=== PATIENT | female | born 1945 | race Caucasian/White ===

== ENCOUNTER → 2024-06-18 | Outpatient (CLI) | payer MEDICARE, SELFPAY ==
--- NOTE | 2024-06-18 12:05 | CT_ITS ---
STUDY: CT RIGHT UPPER EXTREMITY / HUMERUS REASON FOR EXAM: Female, 78 years old. OTH DISP FX OF LOWER END OF R HUMERUS INIT FOR CLOS FX RADIATION DOSAGE (If Supplied By Facility): CTDIvol = ( 27.68 ) mGy, DLP = ( 776.57 ) mGycm TECHNIQUE: High resolution transaxial imaging was performed without the administration of intravenous contrast material. Individualized dose optimization techniques were used for this CT. COMPARISON: None. FINDINGS: Normal subcutis adipose space. There is no demonstrated solid, cystic, or lipomatous mass within the subcutaneous adipose space. There is soft tissue swelling and edema of the triceps musculature. There is joint effusion at the elbow. Normal visualized neurovascular bundles. There is recent Y shaped intercondylar fracture with supracondylar comminution of the distal humerus . There is displacement of fragments of up to 1.[address]/Extremity Upper without Contra IMPRESSION: Distal humerus fracture. Electronically Signed: Santos Carpio MD at 13:52 EST ,
== END | disposition home or self-care (01) ==
PROVIDERS: PCP Family Medicine; Visit Provider Physician Assistant Surgical
DX: S42.491A Other displaced fracture of lower end of right humerus, initial encounter for closed fracture (principal)
CPT/HCPCS: 73200

== ENCOUNTER 2024-06-30 11:42 | Emergency (ER) | payer MEDICARE, SELFPAY ==
[2024-06-30 11:43] VITALS: BP 120/102; PULSE 104; RESP 20; TEMP 36.1; O2SAT 99
[2024-06-30 11:47] VITALS: BMI 31.5
--- NOTE | 2024-06-30 12:13 | RAD_ITS ---
EXAM: XR PELVIS, 1 OR 2 VIEWS CLINICAL INDICATION: pain, remote fall TECHNIQUE: Frontal view of the pelvis. COMPARISON: No relevant prior studies available. FINDINGS: BONES/JOINTS: Unremarkable. No displaced fracture. No destructive or sclerotic lesions. Note that overlapping bowel shadows may however obscure fine detail. Sacroiliac joints are unremarkable. No widening of the pubic symphysis. The articular structures are unremarkable. SOFT TISSUES: Unremarkable. No soft tissue swelling or gas. RAD/Pelvis 1 or 2 Views IMPRESSION: No acute fracture or dislocation of the pelvis Electronically Signed: Karan Hannon MD at 12:58 EST ,
--- NOTE | 2024-06-30 12:14 | RAD_ITS ---
EXAM: XR LUMBOSACRAL SPINE, 2 OR 3 VIEWS CLINICAL INDICATION: right buttocks pain, recent fall TECHNIQUE: Frontal and lateral views of the lumbar spine and sacrum. COMPARISON: No relevant prior studies available. FINDINGS: VERTEBRAE: Unremarkable. Preserved vertebral body height. No fracture. No spondylolisthesis. Preservation of the normal lumbar lordosis. No significant facet arthropathy. DISC SPACES: No acute findings. Disc spaces are maintained. VASCULATURE: Calcified plaques along the abdominal aorta. GASTROINTESTINAL TRACT: Unremarkable as visualized. Included bowel gas pattern is non-obstructive. RAD/Lumbar Spine 2 or 3 Views IMPRESSION: No acute fracture or traumatic subluxation of the lumbar spine including the sacrum. Electronically Signed: Karan Hannon MD at 13:02 EST ,
[2024-06-30] MEDS: morphine 10 MG/ML Syringe 6 MG IM (12:17)
--- NOTE | 2024-06-30 12:28 | ED.VIS.BACK ---
HPI History of Present Illness Chief Complaint: Back Informant: patient Narrative Narrative: Patient is a 78-year-old female with history of recent mechanical fall on June 16 with subsequent right elbow fracture. She underwent surgical repair with Dr. Garret Bell at [facility]. She states they placed and 3 plates and 16 screws in her elbow. She denies initially any other injuries associated with her fall. She notes in the past 2 to 3 days however she has been having worsening pain in her lower back/right buttocks area. She states that sharp and stabbing. It sometimes radiates slightly down her leg. She denies any new injuries. Notes pain is worse when she stands up straight or sits. Denies any bowel or bladder incontinence. Denies any swelling of her legs. Is not sure if she has had imaging of her back or pelvis/hips since her injury. Denies any rash or skin changes. Notes that she is having extremely hard time using the toilet but is because of the position of sitting on the toilet. I have denies any bowel or bladder incontinence this week. Does report that immediately postoperative she did have some urinary incontinence but her states that was from the medication she received. Patient is not on any blood thinners. Notes the swelling is slowly going down in her right arm and she has not in a cast/sling. Patient has been taking 2 ibuprofen and 2 Tylenol every 8 hours per instructions of her orthopedist. States she is about out of her prescription pain medication from her surgery. No other complaints or concerns reported at this time. PFSH PFSH Allergy/AdvReac Type Severity Reaction Status Date / Time No Known Allergies Allergy Verified 06/30/24 11:43 Social History Smoking Status: Unknown if ever smoked ROS ROS ED Constitutional Constitutional ED: Denies chills or fever(s) Cardiovascular Cardiovascular: Denies chest pain Respiratory/Chest Respiratory/Chest: Denies dyspnea Gastrointestinal Gastrointestinal: Denies abdominal pain, diarrhea, nausea or vomiting Musculoskeletal Musculoskeletal: Reports back pain and other Details: Recent right elbow fracture with surgical repair, acute right buttocks pain Integumentary Denies Abrasions or rash Neurologic Neurologic: Denies paresthesias or weakness Hematologic/Lymphatic Hematologic/Lymphatic: Denies easy bleeding or easy bruising EXAM Physical Exam Const Vital Signs: 06/30/24 11:43 Temperature 97 F L Temperature Source Temporal Pulse Rate 104 H Respiratory Rate 20 H Blood Pressure 120/102 H Blood Pressure Mean 108 Pulse Ox 99 Oxygen Delivery Method Room Air Positive well nourished and well developed General Appearance ED: well developed HEENT Reports moist mucous membranes Neck supple Resp normal respiratory effort and clear to auscultation bilaterally Cardio regular rate and regular rhythm Cardio Narrative: 2+ radial and DP pulses GI normal to inspection, nondistended, normoactive bowel sounds, soft to palpation and non-tender Back/Spine normal to inspection and no thoracic nor lumbar tenderness Back/Spine Narrative: Very mild tenderness palpation of the right paraspinal region of the sacrum. Tenderness palpation over the right buttocks to the area of the piriformis. Thoracic Spine / Upper Back: Negative for paraspinal muscle tenderness Lumbar Spine / Lower Back: straight leg raise negative bilaterally Extremity Extremity Narrative: Right upper extremity is in splint from recent surgery. Normal movement of her fingers. No deformity of the lower extremities. Pelvis is stable. No pain with range of motion of the hips bilaterally. No pedal edema appreciated. Neuro oriented x3 and no sensory deficits noted Sensorium / Orientation: alert Motor Exam: strength 5/5 throughout Psych mental status grossly normal Skin no rashes or lesions noted MDM MDM MDM Narrative Medical decision making narrative: Patient is a 78-year-old female presenting with 2 to 3 days of worsening right lower back/buttocks pain. Patient had fall 2 weeks ago and sustained a significant right upper extremity fracture requiring surgery. She is concerned that she might have secondary traumatic injury. Given the new pain (over the last 2 to 3 days and not present before) with no new trauma lower suspicion for an occult fracture will obtain a pelvic x-ray as well as a lumbar x-ray. She does not have any pain with palpation or range of motion of the hip so I do not think this is occult hip/femur fracture. She has negative straight leg test bilaterally. She is not any red flag symptoms for cauda equina syndrome. Patient given dose of IM morphine. X-ray of the lumbar spine and pelvis reviewed by myself as well as urology not show any acute fracture or other traumatic process. Patient will be discharged home with instructions to continue taking Tylenol and ibuprofen and to take her oxycodone as needed for breakthrough pain. She is offered refill but she states she has enough at home. Is encouraged to follow-up with her primary care doctor as well as orthopedist. Counseled this is probably more similar to sciatica. We did discuss steroids but given that she just had surgery on her elbow I would like to hold off as to not limit wound healing. Patient is agreeable with this. Given return precautions. Discharged home in stable condition. Radiography Diagnostic Testing: Clinical Impression(s) from Imaging Studies Pelvis X-Ray 06/30/24 12:13 IMPRESSION: No acute fracture or dislocation of the pelvis Electronically Signed: Karan Hannon MD at 12:58 EST , Lumbar Spine X-Ray 06/30/24 12:14 IMPRESSION: No acute fracture or traumatic subluxation of the lumbar spine including the sacrum. Electronically Signed: Karan Hannon MD at 13:02 EST , Discharge Plan Triage Chief Complaint: Back ED Provider: Bonnie Mendoza Dx/Rx/DC Orders Clinical Impression: Acute right-sided low back pain, Pain in right buttock, Radicular pain of lumbosacral region Instructions: ED Back Pain (Acute or Chronic) Primary Care Provider: Lore Valles Referrals: Lore Valles, [Primary Care Provider] - Activity Restrictions/Additional Instructions: Continue to take ibuprofen and Tylenol at home. Take your prescribed pain medicine as well as needed for breakthrough pain. Apply heat to the area and try to keep moving around (walking and doing gentle stretching). There is no broken bone noted on your x-rays today of your pelvis or lumbar spine. I suspect you have a nerve that is irritated in your low back/buttocks region that is causing your pain. Please follow-up with your primary care doctor or orthopedics if does not improve over the next few days. Print Language: Upper Sorbian Disposition Disposition: Home, Self Care Discharge Date/Time: 06/30/24 13:40
== END 2024-06-30 13:40 | disposition home or self-care (01) ==
LOC: ED 12:12
PROVIDERS: Emergency Provider Emergency Medicine; PCP Family Medicine; Visit Provider Emergency Medicine
DX: M54.17 Radiculopathy, lumbosacral region (principal)
CPT/HCPCS: 72100; 72170; 96372; 99282

== ENCOUNTER 2024-07-09 14:12 | Inpatient (IN) | payer MEDICARE, SELFPAY ==
[2024-07-09 14:47] VITALS: BP 132/82; PULSE 94; RESP 16; TEMP 36.3; O2SAT 96
[2024-07-09 14:51] VITALS: BMI 28.9
--- NOTE | 2024-07-09 15:08 | PCM.HP.STD ---
HPI - General General Date of Admission: 07/09/24 Date of Service: 07/09/24 Chief Complaint: Here for rehabilitation. HPI Narrative SHANKAR CARPIO, is a 78 Female with history of HTN, Hyperlipidemia, Vitamin D deficiency, recent right intra-articular distal humerus fracture s/p ORIF 06/23/2024; discharge home on 06/24/2024. Presented 07/02/2024 with right lower gluteal pain radiating to upper leg that started about 6-7 days prior. Denied weakness, numbness, tingling, but stated she was having difficulty ambulating due to the pain and inability to use walker due to recent fracture. She was admitted for further workup and evaluation, as well as therapy evaluations. During admission, orthopedic surgery was consulted. Patient had x-ray of right hip orderd to rule out fracture and was unremarkable. Subsequently had a CT pelvis and CT of her lower back which showed nondisplaced fractures of the bilateral sacral ala through zone 1. There are also minimally displaced fractures of the bilateral transverse processes of L5. There are no apparent injuries to the anterior portion of the pelvic ring. No intervention required per orthopedic surgery and okay to bear weight as tolerated. She was initially treated with ibuprofen, gabapentin, Medrol Dosepak for concern of sacroiliitis. Ibuprofen had to be discontinued as she developed LIZBET. Steroids were tapered off because of fractures as above and patient started on oxycodone with improvement in pain. Also given Lidocaine patch at area of pain. 07/09/2024 Admit to TCU with debility, here for rehabilitation, strengthening, prior to discharge home with significant other. FOR[facility]LY [facility], [facility] Medical History (Updated 07/09/24 @ 15:[address] Reynaldo Gallagher MD) Closed fracture of right distal humerus Vitamin D deficiency Hyperlipidemia, unspecified Essential (primary) hypertension Hypokalemia Acute kidney injury Closed L5 vertebral fracture Bilateral sacral insufficiency fracture Debility Home Medications ?Medication ?Instructions ?Recorded ?Last Taken ?Type acetaminophen 500 mg capsule 1,000 mg PO Q8H PRN PRN pain 07/09/24 Unknown History [id number] 333 mg-133 1 tab PO DAILY supplement 07/09/24 Unknown History mg-5 mg tablet cholecalciferol (vitamin D3) 25 1,000 unit PO DAILY supplement 07/09/24 Unknown History mcg (1,000 unit) capsule cyclobenzaprine 5 mg tablet 5 mg PO TID PRN muscle spasm 07/09/24 Unknown History gabapentin 300 mg capsule 300 mg PO TID nerve pain 07/09/24 Unknown History hydrochlorothiazide 12.5 mg capsule 12.5 mg PO DAILY BP 07/09/24 Unknown History lidocaine 4 % topical patch 1 patch topical DAILY pain 07/09/24 Unknown History (Aspercreme (lidocaine)) oxycodone 5 mg capsule 5 mg PO Q4H PRN pain (scale score 07/09/24 Unknown History 7-10) polyethylene glycol 3350 17 17 g PO DAILY bowels 07/09/24 Unknown History gram/dose oral powder (Miralax) rosuvastatin 10 mg tablet 10 mg PO QHS cholesterol 07/09/24 Unknown History sennosides 8.6 mg-docusate sodium 2 tab-cap PO DAILY PRN constipation 07/09/24 Unknown History 50 mg tablet (Senna with Docusate Sodium) Allergy/AdvReac Type Severity Reaction Status Date / Time No Known Allergies Allergy Verified 06/30/24 11:43 Surgical History (Updated 07/09/24 @ 15:[address] Reynaldo Gallagher MD) History of open reduction and internal fixation (ORIF) procedure Social History (Updated 07/09/24 @ 15:[address] Reynaldo Gallagher MD) household members: significant other Smoking Status: Never smoker alcohol intake: never substance use type: does not use ROS Constitutional Constitutional: Reports weakness; Denies chills, fever(s) or weight gain ENT HEENT: Denies headache(s), nasal congestion or nasal discharge Cardiovascular Cardiovascular: Denies chest pain or palpitations Respiratory/Chest Respiratory/Chest: Denies cough, excessive phlegm production or shortness of breath with exertion Gastrointestinal Gastrointestinal: Denies abdominal pain, nausea or vomiting Genitourinary Genitourinary: Denies dysuria Musculoskeletal Musculoskeletal: Denies joint pain or joint swelling Integumentary Integumentary: Denies rash or wounds Neurologic Neurologic: Denies focal weakness, numbness or tingling Psychiatric Psychiatric: Denies anxiety, auditory hallucinations, depression, homicidal ideation or suicidal ideation Vital Signs Vital Signs Vital Signs: 07/09/24 14:47 Temperature 97.3 F L Temperature Source Temporal Pulse Rate 94 Respiratory Rate 16 Blood Pressure 132/82 H Blood Pressure Mean 98 Blood Pressure Source Monitor Blood Pressure Position Semi-Fowlers Blood Pressure Location Left Arm Pulse Ox 96 Oxygen Delivery Method Room Air Weight Weight: 71.758 kg Body Mass Index (BMI) 28.9 Physical Exam Const alert General Appearance: cooperative HEENT normocephalic Eyes PERRL and EOMs intact bilaterally Neck supple, no JVD and no carotid bruits Resp normal respiratory effort, normal air movement and clear to auscultation bilaterally Cardio regular rate and regular rhythm GI normal to inspection, nondistended, normoactive bowel sounds, non-tender and non-distended Extremity normal capillary refill General Extremity: Negative for edema Skin no rashes or lesions noted General Skin Exam: no breakdown Psych affect normal Appearance: appropriate Assessment & Plan Assessment/Plan (1) Closed fracture of right distal humerus: (2) Vitamin D deficiency: (3) Hyperlipidemia, unspecified: (4) Essential (primary) hypertension: (5) Hypokalemia: (6) Acute kidney injury: (7) Closed L5 vertebral fracture: (8) Bilateral sacral insufficiency fracture: (9) Debility: PLAN: Plan 78 year old female with below past medical history hospitalized for bilateral sacral insufficiency fracture, l5 transverse process fracture, complicated by acute kidney injury, hypokalemia, admitted to TCU with debility, here for rehabilitation, strengthening, prior to discharge home with significant other. Debility - PT/OT. Pain - Tylenol 1000mg q8, Tramadol 50mg q6 prn pain (1-5), Oxycodone 5mg q4 prn pain (6-10), Lidoderm 1 patch td daily. Bowel - senna/colace 2 tablets bid, Magnesium citrate 300mL po daily prn. Adult immunization - Administer pneumonia vaccine, covid vaccine, flu vaccine as appropriate. DVT prophylaxis - Lovenox 40mg sc daily. Hyperlipidemia - Atorvastatin 20mg qhs. Vitamin D deficiency - D3 25mcg daily. Muscle spasm - Flexeril 5mg po tid prn. Neuropathic pain - Gabapentin 300mg tid. Hypertension - HCTZ 12.5mg daily.
[2024-07-09 15:50] VITALS: RESP 16
[2024-07-09] MEDS: oxyCODONE 5 MG Tablet PO ×2 (17:09→21:09)
[2024-07-09] MEDS: Senna/Docusate Sodium 1 Tablet 2 TABLET PO (21:02)
[2024-07-09] MEDS: Gabapentin 300 MG Capsule PO (21:02)
[2024-07-09] MEDS: Acetaminophen 500 MG Tablet 1000 MG PO (21:02)
[2024-07-09] MEDS: Atorvastatin Calcium 20 MG Tablet PO (21:03)
[2024-07-10] MEDS: cycloBENZAPRine HCl 5 MG TABLET PO (00:37)
[2024-07-10] MEDS: traMADol 50 MG Tablet PO ×4 (00:37→22:44)
[2024-07-10] MEDS: Gabapentin 300 MG Capsule PO ×3 (05:32→22:44)
[2024-07-10] MEDS: oxyCODONE 5 MG Tablet PO ×2 (05:32→18:14)
[2024-07-10] MEDS: Acetaminophen 500 MG Tablet 1000 MG PO ×3 (05:32→22:45)
[2024-07-10 07:58] LABS: Absolute Lymphocyte Count 2.99 X10^3/uL (0.83-4.51); Absolute Neutrophil Count 5.3 X10^3/uL (2.0-7.7); Basophil# 0.07 X10^3/uL; Basophil% 0.7 % (0-1); Eosinophil# 0.36 X10^3/uL; Eosinophils% 3.8 % (0-5); Hematocrit 40.5 % (37-47); Lymphocyte # 2.99 X10^3/ul (0.83-4.51); Lymphocyte % 31.5 % (19-41); Mean Corp Hgb Conc 32.1 g/dL (32-36); Mean Corpuscular Volume 99.8 fL (81-99); Mean Platelet Vol. 9.1 fl (6.2-12.0); Monocyte# 0.74 X10^3/uL; Monocyte% 7.8 % (0-10); NRBC Flagged by Analyzer 0 % (0-5); Neutrophil # 5.29 X10^3/uL (2.7-7.7); Neutrophil % 55.9 % (47-70); Platelet Count 501 K/mm3 (150-450); RBC Distribution Width CV 14.7 % (11.6-14.6); RBC Distribution Width SD 54.1 fl (35.1-43.9); Red Blood Count 4.06 M/mm3 (4.2-5.4); White Blood Count 9.5 K/mm3 (4.4-11.0)
[2024-07-10 08:20] LABS: Anion Gap 5 (5-15); BUN 20 mg/dL (7-18); BUN/Creat Ratio 23.3 RATIO (10-20); Calcium,Total 9.1 mg/dL (8.5-10.1); Chloride 100 mmol/L (98-107); Creatinine, Serum 0.86 mg/dL (0.55-1.02); EST Glomerular Filtration Rate 68 mL/min (>60); Est Glom Filt Rate - Afr Amer 82 mL/min (>60); Estimated Creatinine Clearance 50.01 ml/min; Glucose 115 mg/dL (74-106); Potassium 3.5 mmol/L (3.5-5.1); Sodium Level 136 mmol/L (136-145)
[2024-07-10 08:57] VITALS: BP 133/79; PULSE 108; TEMP 36.3
[2024-07-10] MEDS: hydroCHLOROthiazide 12.5mg 12.5 MG PO (09:02)
[2024-07-10] MEDS: Cholecalciferol (VIT D3) 25 MCG TABLET (1,000 UNITS) PO (09:03)
[2024-07-10] MEDS: Senna/Docusate Sodium 1 Tablet 2 TABLET PO ×2 (09:03→22:46)
[2024-07-10] MEDS: Tuberculin,Purif.prot.deriv. 50 TU/ML Vial 0.1 ML ID (09:22)
[2024-07-10] MEDS: Enoxaparin 40 MG/0.4 ML Syringe SC (11:02)
--- NOTE | 2024-07-10 11:40 | PCM.PN.DRR ---
Documented by User: Melissa Garcia 07/10/24 11:57 TCU RX Drug Regimen Review Subjective/Objective Subjective/Objective Subjective: TCU Admission. 78 YOF presented to outside ER with pain. Hospitalized for bilateral sacral insufficiency fracture, l5 transverse process fracture, complicated by acute kidney injury, hypokalemia. Admitted to TCU with debility for strengthening and rehabilitation. Objective: Allergies No Known Allergies Allergy (Verified 06/30/24 11:43) Current Medications Generic Name Dose Route Start Last Admin Trade Name Freq PRN Reason Stop Dose Admin Acetaminophen 1,000 mg 07/09/24 22:00 07/10/24 05:32 Acetaminophen 500 Mg Tablet PO 1,000 mg Q8 ALBERT Administration Atorvastatin Calcium 20 mg 07/09/24 22:00 07/09/24 21:03 Atorvastatin Calcium 20 Mg Tablet PO 20 mg QHS ALBERT Administration Cholecalciferol 25 mcg 07/10/24 10:00 07/10/24 09:03 Cholecalciferol (Vit D3) 25 Mcg Tablet (1,000 Units) PO 25 mcg DAILY ALBERT Administration Cyclobenzaprine HCl 5 mg 07/09/24 14:30 07/10/24 00:37 Cyclobenzaprine Hcl 5 Mg Tablet PO 5 mg TID PRN Administration muscle spasm Enoxaparin Sodium 40 mg 07/10/24 10:00 07/10/24 11:02 Enoxaparin 40 Mg/0.4 Ml Syringe SC 40 mg DAILY@0600 ALBERT Administration Gabapentin 300 mg 07/09/24 22:00 07/10/24 05:32 Gabapentin 300 Mg Capsule PO 300 mg TID ALBERT Administration Hydrochlorothiazide 12.5 mg 07/10/24 10:00 07/10/24 09:02 Hydrochlorothiazide 12.5mg PO 12.5 mg DAILY ALBERT Administration Protocol Lidocaine 1 patch 07/10/24 10:00 07/10/24 09:02 Lidocaine 5% Patch TOPICAL Not Given DAILY ALBERT Magnesium Citrate 300 ml 07/09/24 15:35 Magnesium Citrate 300 Ml PO DAILY PRN CONSTIPATION Oxycodone HCl 5 mg 07/09/24 15:35 07/10/24 05:32 Oxycodone 5 Mg Tablet PO 5 mg Q4H PRN Administration Pain Score 6-10 or Pre PT/OT Senna/Docusate Sodium 2 tablet 07/09/24 22:00 07/10/24 09:03 Senna/Docusate Sodium 1 Tablet PO 2 tablet BID ALBERT Administration Tramadol HCl 50 mg 07/09/24 15:35 07/10/24 09:22 Tramadol 50 Mg Tablet PO 50 mg Q6H PRN PRN Administration Pain Score 1-5 or Pre PT/OT Tuberculin PPD 0.1 ml 07/17/24 10:00 Tuberculin,Purif.Prot.Deriv. 50 Tu/Ml Vial ID 07/17/24 10:01 X1 ONE Problem List Closed fracture of right distal humerus (Acute) Vitamin D deficiency (Acute) Hyperlipidemia, unspecified (Acute) Essential (primary) hypertension (Acute) Hypokalemia (Acute) Acute kidney injury (Acute) Closed L5 vertebral fracture (Acute) Bilateral sacral insufficiency fracture (Acute) Debility (Acute) Vital Signs Temp Pulse Resp BP Pulse Ox O2 Del Method 97.4 F L 108 H 16 133/79 H 96 Room Air 07/10/24 08:57 07/10/24 08:57 07/09/24 15:50 07/10/24 08:57 07/09/24 14:47 07/10/24 08:57 Oxygen Delivery Method Room Air Weight: 71.758 kg Body Mass Index (BMI) 28.9 Sodium 136 mmol/L (136-145) 07/10/24 07:47 Potassium 3.5 mmol/L (3.5-5.1) 07/10/24 07:47 Chloride 100 mmol/L (98-107) 07/10/24 07:47 Carbon Dioxide 32.0 mmol/L (21.0-32.0) 07/10/24 07:47 Anion Gap 5 (5-15) 07/10/24 07:47 BUN 20 mg/dL (7-18) H 07/10/24 07:47 Creatinine 0.86 mg/dL (0.55-1.02) 07/10/24 07:47 Est GFR (MDRD) Af Amer 82 mL/min (>60) 07/10/24 07:47 Est GFR (MDRD) Non-Af 68 mL/min (>60) 07/10/24 07:47 BUN/Creatinine Ratio 23.3 RATIO (10-20) H 07/10/24 07:47 Glucose 115 mg/dL (74-106) H 07/10/24 07:47 Assessment/Plan: 1. Pain: acetaminophen 1000mg PO Q8, tramadol 50mg PO Q6H PRN pain 1-5 (2 doses, pain scores of 3-flank and 10-back/buttock), oxycodone 5mg PO Q4H PRN pain 6-10 (3 doses, pain scores 9-10 in back/buttock) and lidocaine 5% patch 1 patch topical daily. Please continue to monitor for increased pain, PRN usage, constipation, respiratory depression, renal function and falls (BEERs). 2. Bowel: senna/docusate 2T PO BID and magnesium citrate 300mL PO daily PRN constipation. No PRN doses given. Please continue to monitor for constipation and PRN usage. Last documented bowel movement was 07/09. 3. DVT prophylaxis: enoxaparin 40mg SC daily. Please continue to monitor for S/S of bleeding/DVT, hemoglobin (last 13g/dL), platelets (last 501,000) and renal function. 4. Muscle spasms: cyclobenzaprine 5mg PO TID PRN muscle spasms. Resident has had 1 dose so far. Please continue to monitor for S/S of muscle spasms, PRN usage, dementia/delirium (BEERs), sedation (BEERs) and anticholinergic side effects (BEERs). 5. Hypertension: hydrochlorothiazide 12.5mg PO daily. Please continue to monitor BP (last 133/79), potassium (last 3.5mmol/L), sodium (last 136mmol/L) and renal function. 6. Hyperlipidemia: atorvastatin 20mg PO QHS. Please consider ordering a lipid panel as there is no panel in the chart. Thanks. Please continue to monitor for muscle pain. 7. Vitamin D deficiency: cholecalciferol 25mcg PO daily. Please consider ordering a vitamin D level as there is no level in the chart. Thanks. Assessment/Plan for indications treated with psychotropic medications: 1. Neuropathic pain: gabapentin 300mg PO TID. GDR not appropriate as this medication is being used for neuropathic pain, however, please consider changing frequency to BID (based on BEERs recommendation for CrCl of 50 mL/min). Thanks. Please continue to monitor for falls/fractures (BEERs), renal function and confusion. Medical chart and medication regimen reviewed. The following medication irregularities or issues were identified: 1. Atorvastatin 20mg PO QHS. Please consider ordering a lipid panel as there is no panel in the chart. Thanks. 2. Gabapentin 300mg PO TID. GDR not appropriate as this medication is being used for neuropathic pain, however, please consider changing frequency to BID (based on BEERs recommendation for CrCl of 50 mL/min). Thanks. 3. Cholecalciferol 25mcg PO daily. Please consider ordering a vitamin D level as there is no level in the chart. Thanks. Date Date of Note: 07/10/24 Documented by User: Dr. Reynaldo Gallagher MD 07/11/24 09:03 TCU RX Drug Regimen Review Provider Comments Provider responsibility Provider Comments to Recommendations by Pharmacy Agree
[2024-07-10 15:00] VITALS: PULSE 101
[2024-07-10] MEDS: Atorvastatin Calcium 20 MG Tablet PO (22:45)
[2024-07-10] MEDS: Oseltamivir Phosphate 30 MG Capsule PO (22:46)
[2024-07-11] MEDS: oxyCODONE 5 MG Tablet PO ×3 (00:29→18:15)
[2024-07-11] MEDS: cycloBENZAPRine HCl 5 MG TABLET PO ×2 (00:29→21:10)
[2024-07-11] MEDS: Gabapentin 300 MG Capsule PO ×2 (06:04→18:14)
[2024-07-11] MEDS: Enoxaparin 40 MG/0.4 ML Syringe SC (06:04)
[2024-07-11] MEDS: Acetaminophen 500 MG Tablet 1000 MG PO ×3 (06:04→21:09)
[2024-07-11] MEDS: traMADol 50 MG Tablet PO ×3 (06:04→21:08)
[2024-07-11 08:05] VITALS: BP 129/74; PULSE 93; RESP 17; TEMP 36.1; O2SAT 92
[2024-07-11] MEDS: hydroCHLOROthiazide 12.5mg 12.5 MG PO (08:10)
[2024-07-11] MEDS: Cholecalciferol (VIT D3) 25 MCG TABLET (1,000 UNITS) PO (08:11)
[2024-07-11] MEDS: Senna/Docusate Sodium 1 Tablet 2 TABLET PO ×2 (08:11→21:10)
[2024-07-11] MEDS: Oseltamivir Phosphate 30 MG Capsule PO (21:10)
[2024-07-11] MEDS: Atorvastatin Calcium 20 MG Tablet PO (21:11)
[2024-07-11 22:46] VITALS: PULSE 100; RESP 16; O2SAT 95
[2024-07-12] MEDS: oxyCODONE 5 MG Tablet PO ×2 (00:07→09:09)
[2024-07-12] MEDS: Enoxaparin 40 MG/0.4 ML Syringe SC (05:47)
[2024-07-12] MEDS: Acetaminophen 500 MG Tablet 1000 MG PO ×3 (05:47→20:50)
[2024-07-12] MEDS: cycloBENZAPRine HCl 5 MG TABLET PO ×2 (05:47→20:51)
[2024-07-12] MEDS: traMADol 50 MG Tablet PO ×3 (05:48→23:00)
[2024-07-12 05:54] VITALS: RESP 16
[2024-07-12 06:38] LABS: Cholesterol 125 mg/dL (200); High Density Lipoprotein 38 mg/dL; Triglycerides 118 mg/dL; Very Low Density Lipoprotein 24 mg/dL (5-40)
[2024-07-12 08:15] LABS: Vitamin D,25 Hydroxy 81.9 ng/mL
[2024-07-12 09:06] VITALS: BP 137/75; PULSE 102; TEMP 36.6; O2SAT 96
[2024-07-12] MEDS: hydroCHLOROthiazide 12.5mg 12.5 MG PO (09:09)
[2024-07-12] MEDS: Gabapentin 300 MG Capsule PO ×2 (09:09→16:54)
[2024-07-12] MEDS: Cholecalciferol (VIT D3) 25 MCG TABLET (1,000 UNITS) PO (09:10)
[2024-07-12] MEDS: Senna/Docusate Sodium 1 Tablet 2 TABLET PO ×2 (09:10→20:49)
[2024-07-12] MEDS: Lidocaine 5% Patch 1 PATCH TOPICAL (09:10)
--- NOTE | 2024-07-12 12:35 | NURSING ---
Shipping Weigher Note; Activity Asset: Gerard Sánchez is independent in her choice of daily activities. She prefers to do independent activities in her room such as reading, smartphone, visits with other, and welcomes visits w/the therapy dog. She has a significant other that will visit and bring her things. Staff will remind her of weekly activities and respect her right to say no.
--- NOTE | 2024-07-12 15:05 | CASEMGMT ---
Social Work SW met with patient to complete initial assessment. Introduced self and role. Verified/updated contacts. Pt patient confirmed code status as full code. Pt states she has a living will, but no HCPOA. SW educated to the importance and benefit of a HCPOA and pt agreed to complete one. SW to complete prior to DC as time allows. Pt would like to name brother as HCPOA. SW educated to [facility] insurance, updating every 7 days, and insurance will issue a 3-day notice for DC. Pt is anxious to DC home, but is agreeable to remain until POC meeting 07/14 to get IDTs recommendations. SW to assist with DC planning. Pricsilla Yoder PROMOTIONS DIRECTOR REMELT WORKER
--- NOTE | 2024-07-12 15:44 | NURSING ---
Called and spoke with Aleyda at Dr. Garret Bell's office. Verbal order to remove gabriela and place steri strips.
--- NOTE | 2024-07-12 15:48 | CASEMGMT ---
Social Work SW completed HCPOA with pt. Original and copy provided to pt. Copy placed on chart. Requested SO provide copy of living will to place on file. Priscilla Yoder, ALLEY TENDER GAS REGULATOR REPAIRER
[2024-07-12] MEDS: Atorvastatin Calcium 20 MG Tablet PO (20:48)
[2024-07-12] MEDS: Oseltamivir Phosphate 30 MG Capsule PO (20:50)
[2024-07-12] MEDS: Magnesium Citrate 300 ML PO (20:54)
--- NOTE | 2024-07-13 03:19 | NURSING ---
Patient reported new onset of chest pain and tingling to left wrist. Patient described chest pain as a burning sensation. Reports the burning as persistent along with tingling to left wrist. Vitals obtained. BP- 149/88, HR- 105, RR-16, O2-99% on RA. Patient denies SOB and is A/O x3, able to answer all questions appropriately. This nurse consulted Dr. Gallagher via telephone, new order to obtain EKG and report back to him with abnormal results. Order read back and verified.
--- NOTE | 2024-07-13 03:20 | EKG12_ITS ---
Test Reason : CP Blood Pressure : */* mmHG Vent. Rate : 100 BPM Atrial Rate : 100 BPM P-R Int : 138 ms QRS Dur : 72 ms QT Int : 352 ms P-R-T Axes : 56 -18 40 degrees QTcB Int : 454 ms Normal sinus rhythm Normal ECG When compared with ECG of 02-Nov-2002 05:42, Sinus rhythm has replaced Atrial fibrillation Questionable change in QRS axis Confirmed by Sky Valdez ([id number]), editor newspaper STEFFI PILLAI ([id number]) on 07/15/2024 1:16:00 PM Referred By: Reynaldo Gallagher Confirmed By: Sky Valdez
[2024-07-13 03:30] VITALS: BP 149/88; PULSE 105; RESP 16; O2SAT 99
[2024-07-13] MEDS: Acetaminophen 500 MG Tablet 1000 MG PO ×3 (05:00→23:13)
[2024-07-13] MEDS: traMADol 50 MG Tablet PO ×3 (05:00→23:12)
[2024-07-13] MEDS: Enoxaparin 40 MG/0.4 ML Syringe SC (05:00)
[2024-07-13 08:11] VITALS: BP 123/75; PULSE 103; RESP 20; TEMP 36.2; O2SAT 93
[2024-07-13] MEDS: hydroCHLOROthiazide 12.5mg 12.5 MG PO (08:13)
[2024-07-13] MEDS: Cholecalciferol (VIT D3) 25 MCG TABLET (1,000 UNITS) PO (08:13)
[2024-07-13] MEDS: Lidocaine 5% Patch 1 PATCH TOPICAL (08:13)
[2024-07-13] MEDS: Senna/Docusate Sodium 1 Tablet 2 TABLET PO ×2 (08:13→23:14)
[2024-07-13] MEDS: Gabapentin 300 MG Capsule PO ×2 (08:16→17:51)
[2024-07-13] MEDS: oxyCODONE 5 MG Tablet PO (08:17)
[2024-07-13 10:16] VITALS: PULSE 103
[2024-07-13] MEDS: MethylPREDNISolone DosePak 4 MG BOX PO (23:13)
[2024-07-13] MEDS: Atorvastatin Calcium 20 MG Tablet PO (23:13)
[2024-07-13] MEDS: Oseltamivir Phosphate 30 MG Capsule PO (23:14)
[2024-07-14] MEDS: cycloBENZAPRine HCl 5 MG TABLET PO (01:26)
[2024-07-14] MEDS: traMADol 50 MG Tablet PO ×2 (05:17→12:01)
[2024-07-14] MEDS: Enoxaparin 40 MG/0.4 ML Syringe SC (05:17)
[2024-07-14] MEDS: Acetaminophen 500 MG Tablet 1000 MG PO ×3 (05:18→22:02)
[2024-07-14 05:25] VITALS: PULSE 109; RESP 16
[2024-07-14 08:40] VITALS: BP 124/83; PULSE 116; RESP 16; TEMP 36.3; O2SAT 93
[2024-07-14] MEDS: MethylPREDNISolone DosePak 4 MG BOX PO ×4 (08:40→22:03)
[2024-07-14] MEDS: Senna/Docusate Sodium 1 Tablet 2 TABLET PO ×2 (08:40→22:02)
[2024-07-14] MEDS: Cholecalciferol (VIT D3) 25 MCG TABLET (1,000 UNITS) PO (08:40)
[2024-07-14] MEDS: Lidocaine 5% Patch 1 PATCH TOPICAL (08:40)
[2024-07-14] MEDS: hydroCHLOROthiazide 12.5mg 12.5 MG PO (08:40)
[2024-07-14] MEDS: Gabapentin 300 MG Capsule PO ×2 (08:42→17:26)
--- NOTE | 2024-07-14 09:44 | CASEMGMT ---
Social Work IDT met with patient and friend for care plan meeting. Discussed patient's progress in PT/OT/SN. Educated to [facility] insurance, with updates every 7 days, and a 3-day notice will be issued for a DC date. Pt lives at home with SO, but he is recovering from back surgery and will not able able to assist pt at DC. Pt will need to be Mod I to return home. SW discussed skilled and nonskilled C otpions or possible SNF transfer. KRYSTLE will continue to follow to assist with DC planning. ROBERTO AlvaradoW
[2024-07-14 22:00] VITALS: BP 116/87; PULSE 104; RESP 16; O2SAT 96
[2024-07-14] MEDS: Oseltamivir Phosphate 30 MG Capsule PO (22:01)
[2024-07-14] MEDS: Atorvastatin Calcium 20 MG Tablet PO (22:02)
[2024-07-15] MEDS: cycloBENZAPRine HCl 5 MG TABLET PO (00:58)
[2024-07-15] MEDS: traMADol 50 MG Tablet PO ×2 (00:58→07:57)
[2024-07-15] MEDS: Enoxaparin 40 MG/0.4 ML Syringe SC (05:49)
[2024-07-15] MEDS: Acetaminophen 500 MG Tablet 1000 MG PO ×3 (05:49→22:08)
[2024-07-15] MEDS: MethylPREDNISolone DosePak 4 MG BOX PO ×4 (07:58→22:09)
[2024-07-15] MEDS: hydroCHLOROthiazide 12.5mg 12.5 MG PO (07:58)
[2024-07-15] MEDS: Gabapentin 300 MG Capsule PO ×2 (07:58→17:47)
[2024-07-15] MEDS: Senna/Docusate Sodium 1 Tablet 2 TABLET PO ×2 (07:59→22:08)
[2024-07-15] MEDS: Lidocaine 5% Patch 1 PATCH TOPICAL (07:59)
[2024-07-15] MEDS: Cholecalciferol (VIT D3) 25 MCG TABLET (1,000 UNITS) PO (07:59)
--- NOTE | 2024-07-15 09:05 | MDS.RN ---
Pain assessment for MDS completed.
[2024-07-15 12:19] VITALS: BP 127/69; PULSE 101; RESP 20; TEMP 37.2; O2SAT 95
--- NOTE | 2024-07-15 14:23 | CASEMGMT ---
Social Work SW completed BIMS () and PHQ-2 () for MDS assessment. Priscilla Yoder, TECHNICAL SERVICE ENGINEER ENROBING MACHINE OPERATOR
[2024-07-15] MEDS: Oseltamivir Phosphate 30 MG Capsule PO (22:08)
[2024-07-15] MEDS: Atorvastatin Calcium 20 MG Tablet PO (22:08)
[2024-07-16] MEDS: traMADol 50 MG Tablet PO ×4 (02:22→23:10)
[2024-07-16 05:59] LABS: Absolute Lymphocyte Count 1.68 X10^3/uL (0.83-4.51); Absolute Neutrophil Count 5.2 X10^3/uL (2.0-7.7); Basophil# 0.04 X10^3/uL; Basophil% 0.5 % (0-1); Eosinophil# 0.03 X10^3/uL; Eosinophils% 0.4 % (0-5); Hematocrit 31.9 % (37-47); Hemoglobin 10.1 g/dL (12.0-15.0); Lymphocyte # 1.68 X10^3/ul (0.83-4.51); Mean Corp Hgb Conc 31.7 g/dL (32-36); Mean Corpuscular Hgb 31.3 pg (27.0-32.0); Mean Corpuscular Volume 98.8 fL (81-99); Mean Platelet Vol. 9.1 fl (6.2-12.0); Monocyte# 0.64 X10^3/uL; Monocyte% 8.4 % (0-10); NRBC Flagged by Analyzer 0 % (0-5); Neutrophil # 5.21 X10^3/uL (2.7-7.7); Neutrophil % 68.2 % (47-70); Platelet Count 350 K/mm3 (150-450); RBC Distribution Width CV 15.1 % (11.6-14.6); RBC Distribution Width SD 54.5 fl (35.1-43.9); Red Blood Count 3.23 M/mm3 (4.2-5.4); White Blood Count 7.6 K/mm3 (4.4-11.0)
[2024-07-16] MEDS: Enoxaparin 40 MG/0.4 ML Syringe SC (06:16)
[2024-07-16] MEDS: cycloBENZAPRine HCl 5 MG TABLET PO ×2 (06:16→23:10)
[2024-07-16] MEDS: Acetaminophen 500 MG Tablet 1000 MG PO ×3 (06:16→20:16)
[2024-07-16 06:31] LABS: Anion Gap 4 (5-15); BUN 19 mg/dL (7-18); BUN/Creat Ratio 24.7 RATIO (10-20); Calcium,Total 8.9 mg/dL (8.5-10.1); Chloride 105 mmol/L (98-107); Creatinine, Serum 0.77 mg/dL (0.55-1.02); EST Glomerular Filtration Rate 77 mL/min (>60); Est Glom Filt Rate - Afr Amer 93 mL/min (>60); Estimated Creatinine Clearance 53.76 ml/min; Glucose 103 mg/dL (74-106); Potassium 3.6 mmol/L (3.5-5.1); Sodium Level 139 mmol/L (136-145)
[2024-07-16 08:25] VITALS: BP 121/64; PULSE 103
[2024-07-16] MEDS: MethylPREDNISolone DosePak 4 MG BOX PO ×3 (08:29→20:15)
[2024-07-16] MEDS: Gabapentin 300 MG Capsule PO ×2 (08:29→17:13)
[2024-07-16] MEDS: Senna/Docusate Sodium 1 Tablet 2 TABLET PO ×2 (08:30→20:17)
[2024-07-16] MEDS: hydroCHLOROthiazide 12.5mg 12.5 MG PO (08:30)
[2024-07-16] MEDS: Cholecalciferol (VIT D3) 25 MCG TABLET (1,000 UNITS) PO (08:30)
--- NOTE | 2024-07-16 09:06 | NURSING ---
Hand Quilter Note; MDS for 07/16/2024 Complete
--- NOTE | 2024-07-16 15:12 | NURSING ---
Ordered MRI lumbar/sacral spine for lumbar stenosis, lumbar radiculopathy. Case #[id number]. Approval #[id number].
[2024-07-16] MEDS: Oseltamivir Phosphate 30 MG Capsule PO (20:18)
[2024-07-16] MEDS: Atorvastatin Calcium 20 MG Tablet PO (20:18)
[2024-07-16 20:19] VITALS: PULSE 98; RESP 16; O2SAT 96
[2024-07-17] MEDS: Acetaminophen 500 MG Tablet 1000 MG PO ×3 (05:37→20:38)
[2024-07-17] MEDS: traMADol 50 MG Tablet PO ×2 (05:38→20:37)
[2024-07-17] MEDS: oxyCODONE 5 MG Tablet PO (08:19)
[2024-07-17] MEDS: hydroCHLOROthiazide 12.5mg 12.5 MG PO (08:21)
[2024-07-17] MEDS: Senna/Docusate Sodium 1 Tablet 2 TABLET PO ×2 (08:21→20:38)
[2024-07-17] MEDS: Cholecalciferol (VIT D3) 25 MCG TABLET (1,000 UNITS) PO (08:21)
[2024-07-17] MEDS: MethylPREDNISolone DosePak 4 MG BOX PO ×2 (08:22→20:38)
[2024-07-17 08:35] VITALS: BP 141/82; PULSE 93; RESP 18; TEMP 36.5; O2SAT 97
[2024-07-17] MEDS: Gabapentin 300 MG Capsule PO ×2 (10:17→17:50)
[2024-07-17] MEDS: Tuberculin,Purif.prot.deriv. 50 TU/ML Vial 0.1 ML ID (10:17)
--- NOTE | 2024-07-17 13:14 | NURSING ---
dr chaves notified of MRI results, new order to consult pain mgmt on Friday.
[2024-07-17] MEDS: cycloBENZAPRine HCl 5 MG TABLET PO (13:43)
[2024-07-17] MEDS: Atorvastatin Calcium 20 MG Tablet PO (20:39)
[2024-07-18] MEDS: cycloBENZAPRine HCl 5 MG TABLET PO ×3 (01:19→21:50)
[2024-07-18] MEDS: Acetaminophen 500 MG Tablet 1000 MG PO ×3 (05:10→21:50)
[2024-07-18] MEDS: traMADol 50 MG Tablet PO ×3 (05:10→17:48)
[2024-07-18 08:36] VITALS: BP 132/71; PULSE 105; RESP 16; TEMP 36.7; O2SAT 98
[2024-07-18] MEDS: MethylPREDNISolone DosePak 4 MG BOX PO (08:39)
[2024-07-18] MEDS: hydroCHLOROthiazide 12.5mg 12.5 MG PO (08:39)
[2024-07-18] MEDS: Cholecalciferol (VIT D3) 25 MCG TABLET (1,000 UNITS) PO (08:40)
[2024-07-18] MEDS: Senna/Docusate Sodium 1 Tablet 2 TABLET PO ×2 (08:40→21:50)
[2024-07-18] MEDS: Gabapentin 300 MG Capsule PO ×2 (08:42→17:01)
[2024-07-18] MEDS: Atorvastatin Calcium 20 MG Tablet PO (21:50)
[2024-07-18 22:00] VITALS: PULSE 98; RESP 16
[2024-07-19] MEDS: traMADol 50 MG Tablet PO ×3 (00:53→13:52)
[2024-07-19] MEDS: Acetaminophen 500 MG Tablet 1000 MG PO ×3 (06:07→22:13)
[2024-07-19] MEDS: cycloBENZAPRine HCl 5 MG TABLET PO (06:09)
[2024-07-19 08:44] VITALS: BP 143/83; PULSE 90; RESP 18; TEMP 36.6; O2SAT 94
[2024-07-19] MEDS: Gabapentin 300 MG Capsule PO ×2 (08:47→17:53)
[2024-07-19] MEDS: hydroCHLOROthiazide 12.5mg 12.5 MG PO (08:47)
[2024-07-19] MEDS: Cholecalciferol (VIT D3) 25 MCG TABLET (1,000 UNITS) PO (08:47)
[2024-07-19] MEDS: Senna/Docusate Sodium 1 Tablet 2 TABLET PO ×2 (08:47→22:13)
--- NOTE | 2024-07-19 09:58 | MDS.RN ---
Information for the MDS was obtained from review of the clinical record, interview of resident, staff, and direct observation of resident?s care.
[2024-07-19 10:00] VITALS: PULSE 90; RESP 18; O2SAT 94
--- NOTE | 2024-07-19 10:52 | CON.PCM_ITS ---
Assessment & Plan Assessment/Plan (1) Bilateral sacral insufficiency fracture: QUALIFIERS: Encounter type: initial encounter Qualified Code(s): M84.48XA - Pathological fracture, other site, initial encounter for fracture (2) Radiculopathy of lumbosacral region: PLAN: Plan Continue multimodal analgesic regimen She has LIZBET: Agree with avoiding NSAIDs Plan for caudal epidural steroid injection Not on blood thinners Follow-up in 2 weeks of discharge in our office HPI Consult Data Date of Consult: 07/20/24 HPI Narrative Reason for Consultation: Buttock and lower extremity pain HPI Narrative: SHANKAR CARPIO, is a 78 F who presents with pmh of HTN, Hyperlipidemia, Vitamin D deficiency, recent right intra-articular distal humerus fracture s/p ORIF 06/23/2024; discharge home on 06/24/2024. Presented 07/02/2024 with right buttock pain with RLE radiation for 1 week. She has difficulty ambulating and performing ADLs due to the pain. X-ray of right hip was unremarkable. Lumbar MRI was obtained showing pelvic and L5 transverse process fractures. No intervention required per orthopedic surgery and okay to bear weight as tolerated. She was initially treated with ibuprofen, gabapentin, Medrol Dosepak for concern of sacroiliitis. Ibuprofen had to be discontinued as she developed LIZBET. Steroids were tapered off because of fractures as above and patient started on oxycodone with improvement in pain. Also given Lidocaine patch at area of pain. 07/09/2024. She is now in the TCU. [facility] Medical History (Updated 07/20/24 @ 08:[address] Jefferson Martinez MD) Closed fracture of right distal humerus Vitamin D deficiency Hyperlipidemia, unspecified Essential (primary) hypertension Hypokalemia Acute kidney injury Closed L5 vertebral fracture Bilateral sacral insufficiency fracture Debility Home Medications ?Medication ?Instructions ?Recorded ?Last Taken ?Type acetaminophen 500 mg capsule 1,000 mg PO Q8H PRN PRN pain 07/09/24 Unknown History byziixt-rkjtrheaa-[id number] 333 mg-133 1 tab PO DAILY supplement 07/09/24 Unknown History mg-5 mg tablet cholecalciferol (vitamin D3) 25 1,000 unit PO DAILY supplement 07/09/24 Unknown History mcg (1,000 unit) capsule cyclobenzaprine 5 mg tablet 5 mg PO TID PRN muscle spasm 07/09/24 Unknown History gabapentin 300 mg capsule 300 mg PO TID nerve pain 07/09/24 Unknown History hydrochlorothiazide 12.5 mg capsule 12.5 mg PO DAILY BP 07/09/24 Unknown History lidocaine 4 % topical patch 1 patch topical DAILY pain 07/09/24 Unknown History (Aspercreme (lidocaine)) oxycodone 5 mg capsule 5 mg PO Q4H PRN pain (scale score 07/09/24 Unknown History 7-10) polyethylene glycol 3350 17 17 g PO DAILY bowels 07/09/24 Unknown History gram/dose oral powder (Miralax) rosuvastatin 10 mg tablet 10 mg PO QHS cholesterol 07/09/24 Unknown History sennosides 8.6 mg-docusate sodium 2 tab-cap PO DAILY PRN constipation 07/09/24 Unknown History 50 mg tablet (Senna with Docusate Sodium) Allergy/AdvReac Type Severity Reaction Status Date / Time No Known Allergies Allergy Verified 06/30/24 11:43 Surgical History (Updated 07/09/24 @ 15:[address] Reynaldo Gallagher MD) History of open reduction and internal fixation (ORIF) procedure Social History (Updated 07/09/24 @ 15:[address] Reynaldo Gallagher MD) household members: significant other Smoking Status: Never smoker alcohol intake: never substance use type: does not use ROS Constitutional Constitutional: Reports weakness; Denies chills, fever(s) or weight gain ENT HEENT: Denies headache(s), nasal congestion or nasal discharge Cardiovascular Cardiovascular: Denies chest pain or palpitations Respiratory/Chest Respiratory/Chest: Denies cough, excessive phlegm production or shortness of breath with exertion Gastrointestinal Gastrointestinal: Denies abdominal pain, nausea or vomiting Genitourinary Genitourinary: Denies dysuria Musculoskeletal Musculoskeletal: Reports back pain and extremity pain Integumentary Integumentary: Denies rash or wounds Neurologic Neurologic: Denies focal weakness, numbness or tingling Psychiatric Psychiatric: Denies anxiety, auditory hallucinations, depression, homicidal ideation or suicidal ideation Physical Exam Narrative Lumbar paraspinal tenderness + bilaterally Facet load - bilaterally SLR - bilaterally No Si tenderness. Si provocative maneuvers negative (fabers, gaenslens, compression) Hip provocative maneuvers negative Lab / Micro Data 07/16/24 05:26 07/16/24 05:26 Imaging 1. Edema and cortical incongruity of the midline sacrum at the S1-S2 junction suggesting an acute or subacute fracture. 2. Fractures of the bilateral sacral wings are also partially visualized with associated edema indicating that these are acute or subacute. 3. Left and possible right L5 transverse process fractures. Minimal edema seen on the extreme sagittal images. 4. Degenerative changes in the lumbar spine as detailed above. No critical spinal canal or neural foraminal stenosis. No nerve root impingement.
--- NOTE | 2024-07-19 15:31 | NURSING ---
This nurse called [facility] Dr. Bell's office regarding two small strings coming out of patient's right arm incision at the proximal end. Spoke with Rachael, instructed to take a picture of the incision and send it via secure email to [facility] for physician to view. Picture sent. Awaiting call back from [facility] with follow up instructions regarding incision.
[2024-07-19] MEDS: Atorvastatin Calcium 20 MG Tablet PO (22:13)
[2024-07-20] MEDS: traMADol 50 MG Tablet PO ×2 (02:00→21:27)
[2024-07-20] MEDS: Acetaminophen 500 MG Tablet 1000 MG PO ×2 (05:13→21:26)
--- NOTE | 2024-07-20 09:09 | NURSING ---
Updated by Alla CLIFFORD that resident is frustrated because she isn't aware of the details of procedure with Dr. Maritnez and was left NPO this AM. This RN called and spoke with Portia at Dr. Martinez's, Portia spoke with physician and verified that they are working on getting insurance authorization for procedure but nothing will be done today. Resident does not need to be NPO. Updated resident about phone call. Called and ordered her breakfast tray. Also updated resident that this RN had not heard back form Dr. Garret Bell's office yet from e-mail sent yesterday. Let her know RN will update her as soon as they respond. She thanked RN for update.
[2024-07-20 09:27] VITALS: BP 120/81; PULSE 63; RESP 16; TEMP 35.7; O2SAT 98
[2024-07-20] MEDS: hydroCHLOROthiazide 12.5mg 12.5 MG PO (09:27)
[2024-07-20] MEDS: Cholecalciferol (VIT D3) 25 MCG TABLET (1,000 UNITS) PO (09:27)
[2024-07-20] MEDS: Senna/Docusate Sodium 1 Tablet 2 TABLET PO ×2 (09:27→21:26)
[2024-07-20] MEDS: Gabapentin 300 MG Capsule PO ×2 (09:27→18:07)
--- NOTE | 2024-07-20 12:15 | NURSING ---
pt left unit for procedure
--- NOTE | 2024-07-20 17:01 | NURSING ---
pt returned to unit
--- NOTE | 2024-07-20 17:05 | OP.PCM_ITS ---
Operative Report (Standard) Operative Information Date of Procedure: 07/20/24 Pre-Operative Diagnosis: Lumbosacral radiculopathy Post-Operative Diagnosis: SAME Surgery/Procedure Performed: Caudal epidural steroid injection ux research associate: No Type of Anesthesia: Local Procedure Start Time: 16:22 Procedure Stop Time: 16:25 Select all DRAINS/GRAFTS/IMPLANTS that apply: None Estimated Blood Loss: n/a Specimen collected: No Description of surgery: PROCEDURE: Caudal Epidural Steroid Injection LEVEL: Sacral Hiatus ANESTHESIA: Local only PRE-OPERATIVE DIAGNOSIS: See patient's problem list below. INFORMED CONSENT: The procedure, risks, benefits and options were discussed with patient. There are no contraindications to the procedure. The patient expressed understanding and agreed to proceed. PROCEDURE TECHNIQUE: The patient was admitted to the preoperative area, time out performed, and vital signs were checked. The patient was moved to the procedure area and placed in the prone position. Standard monitors were applied. Sterile prep and drape was performed in a regular manner. The Sacral Hiatus was identified under fluoroscopic guidance. Local anesthesia was administered using lidocaine 0.5% to anesthetize the skin and subcutaneous tissue with 25 G needle. Next a 22 G Spinal needle was inserted under fluoroscopic guidance. Needle position was confirmed on an AP and lateral views as required. Contrast material, Omnipaque 2 cc, was injected under fluoroscopic guidance and showed appopriate epidurogram and epidural spread. Negative Blood and CSF aspiration was confirmed. A mixture of 5 cc Lidocaine 0.5%, Kenalog 60mg 40mg kenalog with 6 cc normal saline was injected. The patient tolerated the procedure well. The needle was removed intact. The patient was cleansed and a Band-Aid was placed. DISCHARGE INSTRUCTIONS: The patient was taken to the Recovery Room and discharged when discharge criteria were met in the Recovery Room. The patient was given both written and verbal postoperative discharge instructions. The patient was advised to call the [facility] [place] or to report to the Emergency Room with any symptoms of infection, bleeding, shortness of breath, progressive weakness or any question related to the procedure. The patient stated understanding and agreement with all discharge instructions. Surgical Findings: N/A Complications Complications: No
[2024-07-20] MEDS: Atorvastatin Calcium 20 MG Tablet PO (21:26)
[2024-07-21] MEDS: Acetaminophen 500 MG Tablet 1000 MG PO ×3 (06:18→21:18)
[2024-07-21 08:17] VITALS: BP 105/70; PULSE 111; RESP 16; TEMP 36.8; O2SAT 92
[2024-07-21] MEDS: hydroCHLOROthiazide 12.5mg 12.5 MG PO (08:19)
[2024-07-21] MEDS: Senna/Docusate Sodium 1 Tablet 2 TABLET PO ×2 (08:19→21:18)
[2024-07-21] MEDS: Cholecalciferol (VIT D3) 25 MCG TABLET (1,000 UNITS) PO (08:19)
[2024-07-21] MEDS: Gabapentin 300 MG Capsule PO ×2 (08:22→17:19)
[2024-07-21 14:10] VITALS: PULSE 107; RESP 16; O2SAT 97
[2024-07-21] MEDS: Atorvastatin Calcium 20 MG Tablet PO (21:18)
[2024-07-22] MEDS: traMADol 50 MG Tablet PO (03:31)
[2024-07-22] MEDS: Acetaminophen 500 MG Tablet 1000 MG PO ×3 (05:47→20:29)
[2024-07-22 08:20] VITALS: BP 112/60; PULSE 94; RESP 16; TEMP 36.3; O2SAT 98
[2024-07-22] MEDS: hydroCHLOROthiazide 12.5mg 12.5 MG PO (08:22)
[2024-07-22] MEDS: cycloBENZAPRine HCl 5 MG TABLET PO (08:22)
[2024-07-22] MEDS: Gabapentin 300 MG Capsule PO ×2 (08:22→16:42)
[2024-07-22] MEDS: Cholecalciferol (VIT D3) 25 MCG TABLET (1,000 UNITS) PO (08:22)
[2024-07-22] MEDS: Senna/Docusate Sodium 1 Tablet 2 TABLET PO ×2 (08:22→20:29)
--- NOTE | 2024-07-22 09:48 | NURSING ---
Addendum entered by Lauren Martines 07/23/24 07:27: 07/22/24- RN attempted to pull out sutures with tweezers, only shredded the strings, unable to pull them out. Uncomfortable for resident. Will leave them be and physician can address at her follow-up appt. Original Note: Call back from Dorothy at Garret Bell's office, ok for staff to pull on strings/sutures with a tweezers. She says it might drain for a while but that is normal.
--- NOTE | 2024-07-22 15:46 | CASEMGMT ---
Social Work Pt requesting to meet with SW to discuss discharge. SW reviewed therapy notes and spoke with team. No concerns with pt dc at this time. Outpt therapy is recommended and pt will need a straight cane. KRYSTLE met with pt. Pt requesting to return home. DC date set for 07/24/24. Pt states she has spoke with significant other and he is agreeable to dc plan and can provide transportation home. Pt also states that significant other will pick out hand a cane for pt at [facility] prior to discharge. KRYSTLE spoke with pt regarding outpt PT and pt is agreeable with preferred provider being [email or web address]. Pt confirms she has transportation to outpt appointments. Referral sent to [email or web address]. DC Date: 07/24/24 DC Disposition: Home with outpatient PT KANDICE Kim
--- NOTE | 2024-07-22 16:19 | DS.PCM_ITS ---
Providers Date of Admission: 07/09/24 Primary Care Physician: Dr. Lore Valles, DO Consultations 07/16/24 13:24 Consult: Pain Management Routine Consulting Provider: Marino Rodriguez Reason for Consult: Low back pain, right sciatica. EMERGENT Consult: No MD Notified: Yes Date Notified: 07/16/24 Time Notified: 13:24 Method of Notification: Answering Service Reason For Visit: SACRAL FRACTURES & RIGHT HUMERUS FRACTURE Diagnosis Discharge Diagnosis (1) Bilateral sacral insufficiency fracture: Status: Acute Code(s): M84.48XA - Pathological fracture, other site, initial encounter for fracture Qualifiers: Encounter type: initial encounter Qualified Code(s): M84.48XA - Pathological fracture, other site, initial encounter for fracture (2) Radiculopathy of lumbosacral region: Status: Acute Code(s): M54.17 - Radiculopathy, lumbosacral region Plan 78 year old female with below past medical history hospitalized for bilateral sacral insufficiency fracture, l5 transverse process fracture, complicated by acute kidney injury, hypokalemia, admitted to TCU with debility, here for rehabilitation, strengthening, prior to discharge home with significant other. * Debility - PT/OT. * Pain - Tylenol 1000mg q8, Tramadol 50mg q6 prn pain (1-5), Oxycodone 5mg q4 prn pain (6-10), Lidoderm 1 patch td daily. * Bowel - senna/colace 2 tablets bid, Magnesium citrate 300mL po daily prn. * Adult immunization - Administer pneumonia vaccine, covid vaccine, flu vaccine as appropriate. * DVT prophylaxis - Lovenox 40mg sc daily. * Hyperlipidemia - Atorvastatin 20mg qhs. * Vitamin D deficiency - D3 25mcg daily. * Muscle spasm - Flexeril 5mg po tid prn. * Neuropathic pain - Gabapentin 300mg tid. * Hypertension - HCTZ 12.5mg daily. Medications at Discharge Home Medications acetaminophen 500 mg capsule 1,000 mg PO Q8H PRN PRN pain 07/09/24 radofkk-ulielgbat-rhsh 333 mg-133 mg-5 mg tablet 1 tab PO DAILY supplement 07/09/24 cholecalciferol (vitamin D3) 25 mcg (1,000 unit) capsule 1,000 unit PO DAILY supplement 07/09/24 hydrochlorothiazide 12.5 mg capsule 12.5 mg PO DAILY BP 07/09/24 rosuvastatin 10 mg tablet 10 mg PO QHS cholesterol 07/09/24 cyclobenzaprine 5 mg tablet 5 mg PO TID PRN muscle spasm 30 days #90 tabs 07/22/24 gabapentin 300 mg capsule 300 mg PO BIDCM 30 days #60 caps 07/22/24 sennosides 8.6 mg-docusate sodium 50 mg tablet (Stimulant Laxative Plus) 2 tab PO BID 30 days #120 tabs 07/22/24 tramadol 50 mg tablet 50 mg PO Q6H PRN PRN Pain Score 1-5 Or Pre Pt/Ot 7 days #28 tabs 07/22/24 Hospital Course Operations None Procedures - (Epidural steroid injection.) Summary of Care Provided Minutes Spent on Discharge: 35 Hospital Course: 78 year old female with below past medical history hospitalized for bilateral sacral insufficiency fracture, l5 transverse process fracture, complicated by acute kidney injury, hypokalemia, admitted to TCU with debility, here for rehabilitation, strengthening, prior to discharge home with significant other. 07/16/2024 MRI lumbar spine: IMPRESSION: 1. Edema and cortical incongruity of the midline sacrum at the S1-S2 junction suggesting an acute or subacute fracture. 2. Fractures of the bilateral sacral wings are also partially visualized with associated edema indicating that these are acute or subacute. 3. Left and possible right L5 transverse process fractures. Minimal edema seen on the extreme sagittal images. 4. Degenerative changes in the lumbar spine as detailed above. No critical spinal canal or neural foraminal stenosis. No nerve root impingement. 07/20/2024 Dr. Martinez Surgery/Procedure Performed: Caudal epidural steroid injection. Her pain improved significantly after injection. Discharge home with significant other 07/24/2024, Outpatient PT. Physical Exam Const alert General Appearance: cooperative HEENT normocephalic Eyes PERRL and EOMs intact bilaterally Neck supple, no JVD and no carotid bruits Resp normal respiratory effort, normal air movement and clear to auscultation bilaterally Cardio regular rate and regular rhythm GI normal to inspection, nondistended, normoactive bowel sounds, non-tender and non-distended Extremity normal capillary refill General Extremity: Negative for edema Skin no rashes or lesions noted General Skin Exam: no breakdown Psych affect normal Appearance: appropriate Weight / BMI Weight Weight: 71.758 kg Body Mass Index (BMI) 28.9 ABG / Lab / Microbiology Data 07/16/24 05:26 07/16/24 05:26 Microbiology: Microbiology 07/16/24 16:30 Stool Stool Occult Blood (SONAL) - Final D/C Instructions Discharge Diet: No restrictions Discharge Activity: Return to Normal Activity, May Shower and Use Walker Weight Bearing Status: Weight bearing as tolerated Call your doctor if you observe: Fever of 101 or Higher, Inability to urinate, Inability to have a bowel movement, Shortness of breath, Dizziness, Fainting spells, Swelling in the ankles, Chest pain and Uncontrolled pain DC O2, CPAP, BIPAP Needs Home O2 Discharge instructions: No Additional Instructions: Discharge home with significant other 07/24/2024, Outpatient PT. Please Follow Up With: Garret Bell When: As scheduled. Meaningful Use Info Meaningful Use Meaningful Use Diagnoses (Choose all that apply): None applicable Ischemic Stroke Statin Dosing Therapy Reference: STATIN DOSE THERAPY REFERENCE: * Patients > 75 years receive moderate or high dose statin therapy. * Patients 75 years or YOUNGER should receive HIGH intensity statin dose unless contraindicated. You will be required to document reason for non-treatment if statin daily dose does not meet guidelines. HIGH DOSE STATIN THERAPY DAILY Atorvastatin > than or = to 40 mg Rosuvastatin > than or = to 20 mg Amlodipine + Atorvastatin > than or = to 2.5/40 mg Ezetimibe + Simvastatin 10/80 mg Simvastatin 80mg Discharge Plan Admission Admit Date/Time: 07/09/24 14:12 Primary Reason for Your Visit: Debility. Attending Provider: Reynaldo Gallagher Chi Primary Care Provider: Lore Valles Consulting Providers: Jefferson Martinez Instructions Additional Instructions / Restrictions: Discharge home with significant other 07/24/2024, Outpatient PT. Discharge Orders/Prescriptions Prescriptions: New sennosides-docusate sodium [Stimulant Laxative Plus] 8.6-50 mg Tablet 2 tab PO BID 30 Days Qty: 120 0RF tramadol 50 mg Tablet 50 mg PO Q6H PRN PRN (Reason: Pain Score 1-5 Or Pre Pt/Ot) 7 Days Qty: 28 0RF gabapentin 300 mg Capsule 300 mg PO BIDCM 30 Days Qty: 60 0RF cyclobenzaprine 5 mg Tablet 5 mg PO TID PRN (Reason: muscle spasm) 30 Days Qty: 90 0RF Continued hydrochlorothiazide 12.5 mg capsule 12.5 mg PO DAILY rosuvastatin 10 mg tablet 10 mg PO QHS acetaminophen 500 mg capsule 1,000 mg PO Q8H PRN PRN (Reason: pain) [id number]-dknamqkfd-wgyl 333-133-5 mg tablet 1 tab PO DAILY cholecalciferol (vitamin D3) 25 mcg (1,000 unit) capsule 1,000 unit PO DAILY Discontinued cyclobenzaprine 5 mg tablet 5 mg PO TID PRN (Reason: muscle spasm) gabapentin 300 mg capsule 300 mg PO TID lidocaine [Aspercreme (lidocaine)] 4 % adhesive patch,medicated 1 patch topical DAILY oxycodone 5 mg capsule 5 mg PO Q4H PRN (Reason: pain (scale score 7-10)) polyethylene glycol 3350 [Miralax] 17 gram/dose powder 17 g PO DAILY sennosides-docusate sodium [Senna with Docusate Sodium] 8.6-50 mg tablet 2 tab-cap PO DAILY PRN (Reason: constipation) Referrals / Follow Up: Lore Valles DO [Primary Care Provider] - Jefferson Martinez MD [Med Staff - Active Staff] - Disposition Disposition (needs filled in before D/C Order can be placed): Home, Self Care
[2024-07-22] MEDS: Atorvastatin Calcium 20 MG Tablet PO (20:29)
[2024-07-22 20:49] VITALS: PULSE 91; RESP 16
[2024-07-23] MEDS: cycloBENZAPRine HCl 5 MG TABLET PO (01:27)
[2024-07-23 05:45] LABS: Absolute Lymphocyte Count 2.38 X10^3/uL (0.83-4.51); Absolute Neutrophil Count 4.3 X10^3/uL (2.0-7.7); Basophil# 0.04 X10^3/uL; Basophil% 0.5 % (0-1); Eosinophil# 0.03 X10^3/uL; Eosinophils% 0.4 % (0-5); Hematocrit 34.5 % (37-47); Hemoglobin 11.2 g/dL (12.0-15.0); Lymphocyte # 2.38 X10^3/ul (0.83-4.51); Lymphocyte % 32.4 % (19-41); Mean Corp Hgb Conc 32.5 g/dL (32-36); Mean Corpuscular Hgb 31.8 pg (27.0-32.0); Mean Platelet Vol. 8.8 fl (6.2-12.0); Monocyte# 0.59 X10^3/uL; NRBC Flagged by Analyzer 0 % (0-5); Neutrophil # 4.29 X10^3/uL (2.7-7.7); Neutrophil % 58.6 % (47-70); Platelet Count 261 K/mm3 (150-450); RBC Distribution Width CV 15.1 % (11.6-14.6); RBC Distribution Width SD 54.5 fl (35.1-43.9); Red Blood Count 3.52 M/mm3 (4.2-5.4); White Blood Count 7.3 K/mm3 (4.4-11.0)
[2024-07-23 06:07] LABS: Anion Gap 5 (5-15); BUN 23 mg/dL (7-18); BUN/Creat Ratio 31.6 RATIO (10-20); Calcium,Total 8.9 mg/dL (8.5-10.1); Chloride 106 mmol/L (98-107); Creatinine, Serum 0.73 mg/dL (0.55-1.02); EST Glomerular Filtration Rate 82 mL/min (>60); Est Glom Filt Rate - Afr Amer 99 mL/min (>60); Estimated Creatinine Clearance 53.76 ml/min; Glucose 99 mg/dL (74-106); Potassium 3.4 mmol/L (3.5-5.1); Sodium Level 138 mmol/L (136-145)
[2024-07-23] MEDS: Acetaminophen 500 MG Tablet 1000 MG PO ×3 (06:07→21:42)
--- NOTE | 2024-07-23 07:52 | NURSING ---
notified dr andie Ruiz-3.4- potassium chloride ordered with BMP for 07/24
[2024-07-23] MEDS: Potassium Chloride Oral Tablet 20 MEQ 40 MEQ PO (09:15)
[2024-07-23] MEDS: Gabapentin 300 MG Capsule PO ×2 (09:16→17:17)
[2024-07-23] MEDS: hydroCHLOROthiazide 12.5mg 12.5 MG PO (09:19)
[2024-07-23] MEDS: Cholecalciferol (VIT D3) 25 MCG TABLET (1,000 UNITS) PO (09:19)
[2024-07-23] MEDS: Senna/Docusate Sodium 1 Tablet 2 TABLET PO ×2 (09:19→21:42)
[2024-07-23 09:22] VITALS: BP 128/68; PULSE 102; RESP 16; TEMP 36.6; O2SAT 94
--- NOTE | 2024-07-23 15:52 | CASEMGMT ---
Social Work SW completed BIMS () and PHQ-2 () for MDS assessment. Priscilla Yoder FINANCIAL REPORTING ANALYST GROUP ACTIVITIES AIDE
[2024-07-23] MEDS: Atorvastatin Calcium 20 MG Tablet PO (21:42)
[2024-07-23 22:00] VITALS: PULSE 92; RESP 16; O2SAT 95
[2024-07-23] MEDS: traMADol 50 MG Tablet PO (23:57)
[2024-07-24 05:50] LABS: Anion Gap 5 (5-15); BUN 22 mg/dL (7-18); BUN/Creat Ratio 33.1 RATIO (10-20); Chloride 107 mmol/L (98-107); Creatinine, Serum 0.66 mg/dL (0.55-1.02); EST Glomerular Filtration Rate 91 mL/min (>60); Est Glom Filt Rate - Afr Amer 111 mL/min (>60); Estimated Creatinine Clearance 53.76 ml/min; Glucose 97 mg/dL (74-106); Potassium 3.6 mmol/L (3.5-5.1); Sodium Level 138 mmol/L (136-145)
[2024-07-24] MEDS: Acetaminophen 500 MG Tablet 1000 MG PO (06:17)
[2024-07-24 06:19] VITALS: RESP 16
[2024-07-24] MEDS: Cholecalciferol (VIT D3) 25 MCG TABLET (1,000 UNITS) PO (08:17)
[2024-07-24] MEDS: hydroCHLOROthiazide 12.5mg 12.5 MG PO (08:18)
[2024-07-24] MEDS: Senna/Docusate Sodium 1 Tablet 2 TABLET PO (08:18)
[2024-07-24] MEDS: Gabapentin 300 MG Capsule PO (08:23)
[2024-07-24] MEDS: traMADol 50 MG Tablet PO (08:42)
[2024-07-24 10:22] VITALS: BP 103/66; PULSE 94; RESP 12; TEMP 36.8; O2SAT 96
== END 2024-07-24 10:15 | disposition home or self-care (01) | DRG 561 ==
PROVIDERS: Admitting Provider Family Medicine Geriatric Medicine; PCP Family Medicine; Referring Provider Family Medicine Geriatric Medicine; Visit Provider Family Medicine Geriatric Medicine
DX: M84.48XD Pathological fracture, other site, subsequent encounter for fracture with routine healing (principal); E55.9 Vitamin D deficiency, unspecified; I10 Essential (primary) hypertension; E87.6 Hypokalemia; G62.9 Polyneuropathy, unspecified; E78.5 Hyperlipidemia, unspecified; M54.17 Radiculopathy, lumbosacral region; Z79.899 Other long term (current) drug therapy
CPT/HCPCS: 36415; 80048; 80061; 82274; 82306; 85025; 93005; 97032; 97110; 97116; 97162; 97165; 97530; 97535; 97802

== ENCOUNTER → 2024-07-16 | Outpatient (CLI) | payer MEDICARE, SELFPAY ==
--- NOTE | 2024-07-16 18:14 | MRI_ITS ---
EXAM: MR LUMBAR SPINE WITHOUT INTRAVENOUS CONTRAST CLINICAL INDICATION: PAIN TECHNIQUE: Multiplanar and multisequence MR images of the lumbar spine without intravenous contrast. COMPARISON: Lumbar spine radiographs, 06/30/2024 FINDINGS: VERTEBRAE: Edema and cortical incongruity of the midline sacrum at the S1-S2 junction suggesting an acute or subacute fracture. Left an possible right L5 transverse process fractures. Minimal edema seen on the extreme sagittal images. No spondylolisthesis. There is preservation of the normal lumbar lordosis. SPINAL CORD: No significant abnormality. Normal position and signal intensity of the conus medullaris. SACRUM/COCCYX: Fractures of the bilateral sacral wings are also partially visualized with associated edema indicating that these are acute or subacute. SOFT TISSUES: No acute findings in the paraspinal soft tissues. DISCS/SPINAL CANAL/NEURAL FORAMINA: L1-L2: Mild bilateral facet arthrosis. No disc herniation, spinal canal stenosis, or neural foraminal narrowing. L2-L3: Mild disc height loss and disc desiccation. Disc bulge and small superimposed left central disc herniation and mild bilateral facet arthrosis. Mild spinal canal stenosis and mild bilateral neural foraminal narrowing, left greater than right. L3-L4: Disc bulge and moderate to severe bilateral facet arthrosis. Mild to moderate bilateral neural foraminal narrowing and mild spinal canal stenosis. L4-L5: Moderate bilateral facet arthrosis. Very subtle disc bulge. Mild spinal canal stenosis and mild bilateral neural foraminal narrowing. L5-S1: Disc bulge and mild bilateral facet arthrosis. No significant spinal canal or neural foraminal stenosis. OTHER FINDINGS: Degenerative changes partially visualized in the cervical and thoracic region on localization images. MRI/Spine Lumbar (Routine) IMPRESSION: 1. Edema and cortical incongruity of the midline sacrum at the S1-S2 junction suggesting an acute or subacute fracture. 2. Fractures of the bilateral sacral wings are also partially visualized with associated edema indicating that these are acute or subacute. 3. Left and possible right L5 transverse process fractures. Minimal edema seen on the extreme sagittal images. 4. Degenerative changes in the lumbar spine as detailed above. No critical spinal canal or neural foraminal stenosis. No nerve root impingement. Electronically Signed: Bob Meyers DO at 22:22 EST ,
== END | disposition home or self-care (01) ==
LOC: MRI 17:42
PROVIDERS: PCP Family Medicine; Visit Provider Family Medicine Geriatric Medicine
DX: M48.061 Spinal stenosis, lumbar region without neurogenic claudication (principal); M54.16 Radiculopathy, lumbar region
CPT/HCPCS: 72148

== ENCOUNTER 2024-07-20 14:25 | Day surgery (SDC) | payer MEDICARE, SELFPAY ==
[2024-07-20 13:10] VITALS: BP 132/75; PULSE 93; RESP 18; TEMP 36.6; O2SAT 97; BMI 28.9
--- NOTE | 2024-07-20 16:15 | RAD_ITS ---
PROCEDURE: Caudal block. DATE OF EXAMINATION: July 20, 2024. INDICATION: Female, 78 years old. Low back pain. FLUOROSCOPY TIME (if supplied): (8 seconds) minutes/seconds. 4.5 mGy. RAD/Fluor Guidance for Spine Inj IMPRESSION: Intraoperative fluoroscopic services provided for caudal block. Electronically Signed: Jayden Fall MD at 8:46 EST ,
[2024-07-20 16:16] VITALS: BP 124/73; BP 130/81; BP 131/75; O2SAT 100; O2SAT 99
[2024-07-20] MEDS: 0.9% Normal Saline (Pres. free 10 ML Vial (16:23)
[2024-07-20] MEDS: Lidocaine 1% (30 ml sdv) 30 ML Vial (16:23)
[2024-07-20] MEDS: Triamcinolone Acetonide 40 MG/ML Vial (16:23)
[2024-07-20 16:51] VITALS: BP 128/81; BP 132/75; PULSE 96; RESP 16; TEMP 36.8; O2SAT 100
== END 2024-07-20 22:00 | disposition skilled nursing facility (03) ==
LOC: SDC 10-29 14:38
PROVIDERS: PCP Family Medicine; Visit Provider Anesthesiology
PROC: 3E0S3BZ Introduction of Anesthetic Agent into Epidural Space, Percutaneous Approach (ICD-10-PCS; CPT 62322; principal; 2024-07-20 14:25)
DX: M54.17 Radiculopathy, lumbosacral region (principal); E55.9 Vitamin D deficiency, unspecified; E78.5 Hyperlipidemia, unspecified; Z79.899 Other long term (current) drug therapy
CPT/HCPCS: 62323; 64483; 77003

== ENCOUNTER → 2024-08-26 | Outpatient (CLI) | payer MEDICARE, SELFPAY ==
--- NOTE | 2024-08-26 08:50 | BD_ITS ---
EXAM: CLINICAL INDICATION: Determine bone density. CLINICAL HISTORY: Patient is postmenopausal. COMPARISON: None. TECHNIQUE: Bone densitometry of the lumbar spine and hips was performed using the HOLOGIC DEXA scanner. FINDINGS: Bone Density Measurements: SPINE AP Spine (L1-L4): 0.792 g/cm2 T-Score: -2.3 Z-Score: 0.3 WHO Classification: OSTEOPENIA LEFT FEMUR Femoral TOTAL (LEFT): 0.752 g/cm2 T-Score: -1.6 Z-Score: 0.4 WHO Classification: OSTEOPENIA Femoral NECK (LEFT): 0.612 g/cm2 T-Score: -2.1 Z-Score: 0.1 WHO Classification: OSTEOPENIA RIGHT FEMUR Femoral TOTAL (RIGHT): 0.717 g/cm2 T-Score: -1.8 Z-Score: 0.1 WHO Classification: OSTEOPENIA Femoral NECK (RIGHT): 0.549 g/cm2 T-Score: -2.7 Z-Score: -0.5 WHO Classification: Osteoporosis BD/Dexa Bone Density Study IMPRESSION: Patient demonstrates osteoporosis of the left hip and osteopenia of the lumbar spine and right hip. The 10 year fracture risk index for a major osteoporotic fracture is 28% and fo r a hip fracture is 9.2%. World Health Organization criteria for BMD interpretation classify patients as: Normal (T-score at or above -1.0), Osteopenic (T-score between -1.0 and -2.5),or Osteoporotic (T-score at or below -2.5). The presence of vertebral abnormalities such as scoliosis or osteophytes, or ao rtic/ligamentous calcifications can alter readings of the lumbar spine. In such cases, readings of the hips are more reliable. Reading Location: [id number]
== END | disposition home or self-care (01) ==
LOC: OPBD 08:49
PROVIDERS: PCP Family Medicine; Referring Provider Orthopaedic Surgery Orthopaedic Surgery of the Spine; Visit Provider Orthopaedic Surgery Orthopaedic Surgery of the Spine
DX: M81.0 Age-related osteoporosis without current pathological fracture (principal)
CPT/HCPCS: 77080

== ENCOUNTER 2024-10-21 10:00 | Outpatient (RCR) | payer MEDICARE, SELFPAY ==
--- NOTE | 2024-08-13 08:46 | HP.PTEVAL_ITS ---
Patient's Visit Information Visit Information Visit Information: SHANKAR CARPIO is a 78 year old F referred to Physical Therapy by Dr. Reynaldo Gallagher MD with a diagnosis of closed displaced fx distal R humerus, ORIF around mid june. Date of Evaluation: 08/13/24 Physical Therapist: Garret Adame, SHIVANIT, OCS, CSCS Visit Plan Frequency: 3x /Week Duration: 4-6 Weeks Plan: 3x/week for 4-6 weeks for 1. ROM and mobs R elbow to enhance ROM, streetching biceps, desensitization massage to incision. STM to bicep adn tricep 2. progress to resistance strength R shoulder and elbow once ROM improving ice and MH as needed. return to funciton activity This will start after trip to [facility] she has planned next week. HEP in meantime, aROM with OP elbow flexion adn ext 12x 3x/day, desensitzation masstage to scar, 3x/day, ice, heat, and to use R UE for light reaching and lifting/carrying. Subjective Subjective: R elbow fracture after falling down a flight of steps June 16. Slipped on wet surface. Balance is good, just a wet floor. Went to three hospitals. Fractured elbow splintered. [place] [facility] on 06/16. Splint and ortho 2 days later. They sent to trauma center at [facility] the next week. Was in pain all weekend. Surgery 06/23 for plats 3 adn 16 screws in R elbow. Went home and was doing OK. Had hip x rayed shortly later in and had frctured pelvis in 2 places. Family doctor gave steroid. back to [facility] and found in the hospital for a week adn ot improving. Transferred to [facility] on floor and had MRI and has 2 bulging discs. Went to [facility] and saw Dr. Donahue. had fractured tailbone. Ortho wants her to focus on elbow. saw surgeon last weeek and gave order for PT. No exercises given for elbow but has started moving it on her own. It did not feel bad after surgery but painful now since moving it last week. Elbow kept her from going to [facility] in June and that did not happen. Lives with friend., dresses self , bath and bathroom I. Cooks to an extent limitd with L hand. She is right handd. Hobbies: sew adn read,Reading is OK but doesnt feel like it. Sewed the other day and was slow and hurts after a bit. Can fasten bra in back now so is improving, doing AROM elbow and shoulder at home. 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 hard to eat with R UE and put contacts in due to lack of ROM. Pain R elbow: Pain Intensity (Out of 10): 2 Pain Intensity Range: 0 and 10 Objective Objective: R elbow -40 ext to 115 flexion vs L 150 flexion and 0 ext, p streetching today R is -37 ext to 125 flexion. incision is healed well but mild to moderate scarring underneath very long incision. shoulder wrist flex/ext/pron/sup and hand movement appear WNL. Some elbow pain R with shoulder movement but able to move. Pain with end range elbow R flex adn ext. Firm end feel. strength is 3 in ext rotation R and 3+ triceps, both with R elbow pain. 4- elbow flexion and shoulder flexion R, no painc, wrist flex/ext 4+ no pain. Walking with cane with good balance and trasnfers I today. Balance/Special Test Scores Quick DASH Score: 65.9075 Goals Goal 1:: 150 to -3 AROM R elbow to enhance ADL ability Goal Time Frame: 4-6 Weeks Goal 2:: Pt able to feed self and put in contacts comfortably with R UE. Goal Time Frame: 4-6 Weeks Goal 3:: Pt feel back to 95% normal activity Goal Time Frame: 4-6 Weeks Goal 4:: Quickdash score 17 or less Goal Time Frame: 4-6 Weeks Goal 5:: I aoppropriate ex to manage condition Goal Time Frame: 4-6 Weeks Rehabilitation Potential Physical Therapy Diagnosis: loss of ROM in R elbow and strength effecting function ADLs Rehabilitation Potential: Fair Anticipated Interventions Patient/Client Instruction: Educate patient on: Condition and Plan of Care For the Purpose of:: To decrease pain, To increase ROM, To improve nutrient delivery to tissue, To improve muscle performance and motor function, To in crease tolerance to activity/condition/position and To improve performance and independence with ADL's Therapeutic Exercise to Include: Strength training, Postural training, Fl exibilty training, Passive ROM and Active ROM For the Purpose of:: To decrease pain, To increase ROM, To improve nutrient delivery to tissue, To improve muscle performance and motor function, To increase tolerance to activity/condition/position and To improve performance and independence with ADL's Manual Therapy Techniques to Include: Scar massage, Mobilization, Passive ROM and Soft tissue mobilization For the Purpose of:: To increase ROM Cryotherapy (ice pack, ice massage): Yes Thermo therapy (hot pack): Yes For the Purpose of:: To decrease pain, To increase ROM and To improve nutrient delivery to tissue Text: Thank you for the opportunity to evaluate your patient. For Medicare and Medicare HMO plans, please review the plan of care and approve it. It will need to be FAXED BACK to us at [phone] for Medicare purposes. For Medicare only, by signing this I certify the plan of care. Please let me know if there are questions or concerns regarding this plan of care. Physician Signature: Date:
--- NOTE | 2024-09-17 08:27 | HP.PTREVAL ---
Re-Evaluation Intro: Dr. Reynaldo Gallagher MD, It has been my pleasure to treat SHANKAR CARPIO over the last 13 visits for closed displaced fx distal R humerus, ORIF around mid june. Please see the progress note below for an update on the physical therapy plan of care! Subjective Subjective: New script brought in. Says a plate has slippd but doctor thinks it will heal. Script is for aggressive elbow ROM, avoid loading through elbow, no tricep strength, may do bicep. I am gaining motion, still hard to get something overhead. Can feed self but drying hair is difficult, can comb it. Sleeping is OK , hard time to get to sleep at times. Exercises at home hurt during but not afteer. Doctor said pain will take a year, no guarantee he could fix the slipped plate, therapy could correct it. Objective Objective/Function: 36 R arm from full ext, 50 degree left at flexion vs 30 on L. Rechcking today after [employer] strtching. Strength is 4/5 elbow flexion R and 4- er , IR, triceps not tested. New POC and goals aree progressing slowly but still appropriate with a fiar prognosis overall, questionable for ROM goal. Plan Plan Plan: Script is for aggressive elbow ROM, avoid loading through elbow, no tricep strength, may do bicep. 3x/week for 4-6 more weeks until end October as needed. 1. More aggressive R elbow PROM, AROM and mobs, arm pull. 2. progrss to full pulling strength program and RC/scapular strength via band and prone and machines if desired, no triceps or axial loading of elbow. Balance/Gait/Functional tests Balance/Special Test Scores Quick DASH Score: 43.1800 Goals Goals Goal 1:: 150 to -3 AROM R elbow to enhance ADL ability Goal Time Frame: 4-6 Weeks Goal Progress: slow progression Goal 2:: Pt able to feed self and put in contacts comfortably with R UE. Goal Time Frame: 4-6 Weeks Goal Progress: Goal Met Goal 3:: Pt feel back to 95% normal activity Goal Time Frame: 4-6 Weeks Goal Progress: 50 Goal 4:: Quickdash score 17 or less Goal Time Frame: 4-6 Weeks Goal Progress: Progressing Goal 5:: I aoppropriate ex to manage condition Goal Time Frame: 4-6 Weeks Goal Progress: Progressing Anticipated Interventions Anticipated Interventions Patient/Client Instruction: Educate patient on: Condition and Plan of Care For the Purpose of:: To decrease pain, To increase ROM, To improve nutrient delivery to tissue, To improve muscle performance and motor function, To increase tolerance to activity/condition/position and To improve performance and independence with ADL's Therapeutic Exercise to Include: Strength training, Postural training, Flexibilty training, Passive ROM and Active ROM For the Purpose of:: To decrease pain, To increase ROM, To improve nutrient delivery to tissue, To improve muscle performance and motor function, To increase tolerance to activity/condition/position and To improve performance and independence with ADL's Manual Therapy Techniques to Include: Scar massage, Mobilization, Passive ROM and Soft tissue mobilization For the Purpose of:: To increase ROM Cryotherapy (ice pack, ice massage): Yes Thermo therapy (hot pack): Yes For the Purpose of:: To decrease pain, To increase ROM and To improve nutrient delivery to tissue Re-Evaluation Ending Re-evaluation ending: Please do not hesitate to contact me at [phone] by phone or if you have questions or concerns regarding this new plan of care! Sincerely, Garret Adame, DPT, OCS, CSCS
--- NOTE | 2024-10-06 15:24 | HP.PTEVAL2_ITS ---
Patient's Visit Information Visit Information Visit Information: SHANKAR CARPIO is a 78 year old F referred to Physical Therapy by Dr. Reynaldo Gallagher MD with a diagnosis of RCT L. Date of Evaluation: 10/06/24 Physical Therapist: Garret Adame, DPT, OCS, CSCS Visit Plan Frequency: 2x /Week Duration: 2-4 Weeks Plan: 2x/week for 2-4 weeks for L shoulder strength progression, home phase 3 and into gym for silver sneakers. IE ER OTB 3x10 given to patient day one. Subjective Subjective: Elbow treatment might b at a standstill. F/U with elbow doctor . Got L shoulder pain a month ago and not sure why but she did lean heavily on L arm since R was hurt. Doctor checked X ray for tear and it was OK. Gave prescription for steroids for a week which helped. Still feels pain upper left arm with movement dull ache but sharp 5/10 but cannot reproduce it. It hurts to antoni around in bed but is not keeping her up . No numbness or tingling inthat L arm. Overall is 75% better overall Prvious h/o RCT L. repaired 1977 Cortisone is next step if therapy not helpful. Pain L shoulder: Intensity: 0 Pain Intensity Range: 0 and 5 Comment: achy Objective Objective: cervical AROM wFL and painfree. Scapula move well B. L shoulder g-h ROM is symmetrical to R, 150 flexion, 40 er, L2 IR, no pain today. has pain donning coat with L. elbow and wrist AROM L WFL and painfree. reflexes 2/3 L bi and tri sensation L UE WNL, R elbow still hypersensitive back of elbow. strength elevation L shoulder 4-, no pain and - empty can. Er L 3 and r 3, IR 3+ B. abduction 3+ B no pain. - HK , - neer, - drop arm, Goals Goal 1:: painfree L shoulder with donning coat Goal Time Frame: 2-4 Weeks Goal 2:: L shoulder feel 100% back to normal Goal Time Frame: 2-4 Weeks Rehabilitation Potential Physical Therapy Diagnosis: weakness L shoulder stabs. Rehabilitation Potential: Fair Anticipated Interventions Patient/Client Instruction: Educate patient on: Condition and Risk Factors For the Purpose of:: To decrease pain, To improve nutrient delivery to tissue and To improve muscle performance and motor function Therapeutic Exercise to Include: Strength training, Postural training, Passive ROM and Active ROM For the Purpose of:: To increase ROM, To improve nutrient delivery to tissue and To improve muscle performance and motor function text: Thank you for the opportunity to evaluate your patient. For Medicare and Medicare HMO plans, please review the plan of care and approve it. It will need to be FAXED BACK to us at [phone] for Medicare purposes. For Medicare only, by signing this I certify the plan of care. Please let me know if there are questions or concerns regarding this plan of care. Physician Signature: D ate:
--- NOTE | 2024-10-21 10:44 | HP.PTDCSUM ---
Discharge Summary D/C summary: It has been my pleasure to treat SHANKAR CARPIO referred by Dr. Reynaldo Gallagher MD, with the diagnosis of closed displaced fx distal R humerus, ORIF around mid june for a total of 25 visit(s). Discharge Date: 10/21/24 Please see the following information for a summary of their discharge status. Subjective Subjective: Elbow hurts always, 5/10 , worse with resting elbow on something. Not improving. ROM, Will see doctor only if needs more surgery. Does not want to put up with this pain and thinking she will have that done. Activities are normal. Doing shoulder exercises at homee. Pain R elbow: Pain Intensity (Out of 10): 5 Overall Improvement % Improvement: 30 Objective Objective/Function: 142 flexion R elbow(-8 form other side) and -38 extension. Uses arm funcitonally well. clean rice grader and reel tender to touch adn 5/10 pain at rest frustrating to patient. Goals Goal 1:: 150 to -3 AROM R elbow to enhance ADL ability Goal Progress: slow progression Goal 2:: Pt able to feed self and put in contacts comfortably with R UE. Goal Progress: Goal Met Goal 3:: Pt feel back to 95% normal activity Goal Progress: Not Progressing Goal 4:: Quickdash score 17 or less Goal Progress: Progressing Goal 5:: I aoppropriate ex to manage condition Goal Progress: Goal Met Plan Plan: d/c , Pt to contact doctyor after [place] trip due to lack of improvement and other otpions. D/C Information Discharge Comments: ROM and baseline pain not improving, pt to consider other options with doctor. d/c sentence: If there are questions or concerns regarding this patient's physical therapy, please feel free to call me at [phone]. Thank you for the referral of this patient. Sincerely, Garret Adame, DPT, OCS, CSCS Balance/Gait/Functional tests Balance/Special Test Scores Quick DASH Score: 43.1800 Improvement % Improvement: 30
--- NOTE | 2024-10-21 10:48 | HP.PTDCS(2) ---
Discharge Summary D/C Summary: It has been my pleasure to treat SHANKAR CARPIO referred by Dr. Reynaldo Gallagher MD, with the diagnosis of RCT L for a total of 6 visit(s). Discharge Date: 10/21/24 Please see the following information for a summary of their discharge status. Subjective Subjective: No pain in shouders lately and able to put coat on well. Elbow pain R holds her back but shoulders due not. Doing strength ex at home and plans on continuing. Overall Improvement % Improvement: 75 Objective Objective/Function/Assessment: Full aROM L shoulder without pain, resisted rotations and elevations without pain today on L and symmetrical ROM to R shoulder. Goals Patient Goals: Alleviate Pain Goal 1:: painfree L shoulder with donning coat Goal Progress: Goal Met Goal 2:: L shoulder feel 100% back to normal Goal Progress: Progressing Plan Plan: d/c to HEP D/C Information Discharge Comments: will continue HEP d/c sentence: If there are questions or concerns regarding this patient's physical therapy, please feel free to call me at [phone]. Thank you for the referral of this patient. Sincerely, Garret Adame, DPT, OCS, CSCS Balance/Special Test Scores Improvement % Improvement: 75
== END 2024-10-21 12:52 | disposition home or self-care (01) ==
LOC: PT 10:00
PROVIDERS: PCP Family Medicine; Referring Provider Family Medicine Geriatric Medicine; Visit Provider Family Medicine Geriatric Medicine
DX: S52.571D Other intraarticular fracture of lower end of right radius, subsequent encounter for closed fracture with routine healing (principal); S42.491D Other displaced fracture of lower end of right humerus, subsequent encounter for fracture with routine healing
CPT/HCPCS: 97110; 97140; 97161; 97164; 97530